=== PATIENT | male | born 1995 | race Caucasian/White ===

== ENCOUNTER 2018-07-12 21:45 | Emergency (ER) | payer MEDICAID ==
[~2018-07-12] VITALS: Ht 182.9 cm; Wt 81.6 kg
[2018-07-12 21:45] VITALS: BP_SYST 141
[~2018-07-12 21:45] MED LIST: ALBU17AE26 IH; CONCERTA; GUAN3TAB
--- NOTE | 2018-07-12 21:45 | NUR ---
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 Initial SPO2 93% RA. SPO2 increases to 97% on O2 at 2 LPM/NC. Pt report given to KIMBERLY Conteh.
--- NOTE | 2018-07-12 21:50 | NUR ---
Patient to ER via triage for evaluation of asthma exacerbation, cough and stuffed nose. Patient reports no relief from albuterol inhaler, or nebulizer. Patient is awake, alert and oriented in no acute distress, vital signs stable, respirations even and unlabored, skin warm and dry to touch. Patient placed on oxygen at 2 lpm via NC. Awaiting evaluation by ER MD, will continue to observe and assess.
--- NOTE | 2018-07-12 22:30 | NUR ---
Pt placed to ER bed 03, to conveyor monitor, O2 at 2LMP, SPO2 97%. NAD.
--- NOTE | 2018-07-12 22:50 | NUR ---
ER at bedside examining patient.
[2018-07-12] MEDS ORDERED: PREDNISONE 20 MG TABLET PO ONE (23:00)
[2018-07-12] MEDS ORDERED: IPRATROPIUM BROM 0.5 MG/2.5 ML VIAL.NEB (ATROVENT) IH ONE (23:00)
[2018-07-12] MEDS ORDERED: LevALBUTEROL HCL 1.25 MG/0.5 ML *CONC.* VIAL.NEB (XOPENEX CONC.) INH ONE ×2 (23:00→23:45)
--- NOTE | 2018-07-12 23:30 | NUR ---
RT at bedside for breathing treatment.
--- NOTE | 2018-07-13 00:30 | NUR ---
Patient resting quietly in no acute distress, vital signs stable, respirations even and unlabored, skin warm and dry to touch. No adverse reaction noted to medication.
[2018-07-13 01:00] VITALS: BP_SYST 107
--- NOTE | 2018-07-13 01:00 | NUR ---
Patient given written and verbal discharge instructions and verbalizes understanding. ER MD discussed with patient the results and treatment provided. Patient in stable condition. ID arm band removed. Rx of Prednisone given. Patient educated on pain management and to follow up with PMD. Pain Scale 0. Opportunity for questions provided and answered. Medication side effect fact sheet provided. Patient left ER in no acute distress, able to ambulate without difficulty with slow, steady gait with friend at his side. No adverse reaction noted to medication.
== END 2018-07-13 01:00 | disposition home or self-care (01) ==
LOC: SED 21:45
DX: J45.901 Unspecified asthma with (acute) exacerbation (principal); J06.9 Acute upper respiratory infection, unspecified; F90.9 Attention-deficit hyperactivity disorder, unspecified type; Z87.891 Personal history of nicotine dependence; Z79.899 Other long term (current) drug therapy; Z71.6 Tobacco abuse counseling
CPT/HCPCS: 71045; 94640; 99284; J7512; J7612 ×2

== ENCOUNTER 2018-08-08 15:13 | Emergency (ER) | payer MEDICAID ==
[~2018-08-08] VITALS: Ht 182.9 cm; Wt 79.4 kg
[2018-08-08 15:29] VITALS: BP_SYST 162
--- NOTE | 2018-08-08 15:34 | NUR ---
patient placed in hallway bed, endorsed care to lacy garvey.
--- NOTE | 2018-08-08 15:35 | NUR ---
Patient to ER via triage for suture removal, patient had sutures placed on 08/01/18. No bleeding, no redness or swelling, no s/s infection noted. Patient is awake, alert and oriented in no acute distress, vital signs stable, respirations even and unlabored, skin warm and dry to touch. Awaiting evaluation by ER MD/CDL DRIVER, will continue to observe and assess.
--- NOTE | 2018-08-08 15:38 | NUR ---
Meli Cruz [employer] CLERK at bedside to evaluate patient.
[2018-08-08 16:00] VITALS: BP_SYST 140
--- NOTE | 2018-08-08 16:00 | NUR ---
Patient given written and verbal discharge instructions and verbalizes understanding. ER MD discussed with patient the results and treatment provided. Patient in stable condition. ID arm band removed. No RX given. Patient educated on pain management and to follow up with PMD. Pain Scale 0. Opportunity for questions provided and answered. Medication side effect fact sheet provided. Patient left ER in no acute distress, able to ambulate without difficulty with slow, steady gait. No active bleeding from suture removal site.
== END 2018-08-08 16:00 | disposition home or self-care (01) ==
LOC: SED 15:13
DX: S61.412D Laceration without foreign body of left hand, subsequent encounter (principal); R03.0 Elevated blood-pressure reading, without diagnosis of hypertension; J45.909 Unspecified asthma, uncomplicated; F90.9 Attention-deficit hyperactivity disorder, unspecified type; X99.1XXD Assault by knife, subsequent encounter
CPT/HCPCS: 99281

== ENCOUNTER 2019-10-11 16:22 | Emergency (ER) | payer MEDICAID ==
[~2019-10-11] VITALS: Ht 182.9 cm; Wt 81.6 kg
[2019-10-11] MEDS ORDERED: IPRATROPIUM/ALBUTEROL SULFATE 3 ML AMPUL.NEB (DUONEB) INH ONE (16:30)
[2019-10-11] MEDS ORDERED: methylPREDNISolone SOD SUCC/PF 62.5 MG/ML VIAL IM ONE (16:30)
[2019-10-11 16:33] VITALS: BP_SYST 151
[2019-10-11 17:54] VITALS: BP_SYST 113
== END 2019-10-11 17:54 | disposition home or self-care (01) ==
LOC: SED 16:22
DX: J45.901 Unspecified asthma with (acute) exacerbation (principal); F90.9 Attention-deficit hyperactivity disorder, unspecified type; F17.200 Nicotine dependence, unspecified, uncomplicated; F12.90 Cannabis use, unspecified, uncomplicated; Z71.6 Tobacco abuse counseling
CPT/HCPCS: 94640; 96372; 99283; J2930; J7620

== ENCOUNTER 2023-07-20 11:57 | Emergency (ER) | payer MEDICAID ==
[~2023-07-20] VITALS: Ht 182.9 cm; Wt 91.2 kg
[2023-07-20 11:57] VITALS: BP_SYST 139; PULSE 86; RESP 17; TEMP 97.2; O2SAT 98
[~2023-07-20 11:57] MED LIST changes: -CONCERTA; -GUAN3TAB
[2023-07-20 12:43] LABS: BASOPHILS # (AUTO) 0.1 K/uL (0.0-0.2); BASOPHILS % (AUTO) 1.2 % (0.0-2.0); EOSINOPHILS # (AUTO) 0.5 K/uL (0.0-0.4); EOSINOPHILS % (AUTO) 6.3 % (0.0-4.0); HEMATOCRIT 46.2 % (36-54); HEMOGLOBIN 15.5 g/dL (14.0-18.0); LYMPHOCYTES # (AUTO) 2.2 K/uL (1.0-5.5); LYMPHOCYTES % (AUTO) 28.9 % (20.5-51.5); MEAN CORPUSCULAR HEMOGLOBIN 31 pg (27-31); MEAN CORPUSCULAR HGB CONC 34 % (32-36); MEAN CORPUSCULAR VOLUME 93 fL (79.0-98.0); MONOCYTES # (AUTO) 0.5 K/uL (0.0-1.0); MONOCYTES % (AUTO) 6.7 % (1.7-9.3); NEUTROPHILS # (AUTO) 4.4 K/uL (1.8-7.7); NEUTROPHILS % (AUTO) 56.9 % (40.0-70.0); PLATELET COUNT (AUTO) 188 K/uL (130-430); RED BLOOD CELL COUNT(AUTO) 4.96 MIL/uL (4.2-6.2); RED CELL DISTRIBUTION WIDTH 13.5 % (9.0-15.0); WHITE BLOOD COUNT (AUTO) 7.7 K/uL (4.8-10.8)
[2023-07-20 12:46] LABS: ALANINE AMINOTRANSFERASE 31 U/L (12-78); ALBUMIN 4.2 g/dL (3.4-4.8); ANION GAP 4 (5-15); ASPARTATE AMINOTRANSFERASE 17 U/L (10-37); CALCIUM 8.7 mg/dL (8.4-11.0); CARBON DIOXIDE 30 mmol/L (23-29); CHLORIDE 101 mmol/L (98-107); CREATININE 1.07 mg/dL (0.55-1.30); GFR AFRICAN AMERICAN 107 mL/min (>90); GLUCOSE 97 mg/dL (74-106); SODIUM SERUM 135 mmol/L (136-145); TOTAL BILIRUBIN 0.5 mg/dL (0.0-1.0); TOTAL PROTEIN, SERUM 7.7 g/dL (6.4-8.3); UREA NITROGEN, BLOOD 14 mg/dL (8-21)
[2023-07-20 12:47] LABS: GFR NON AFRICAN-AMERICAN 88 mL/min (>90)
[2023-07-20] MEDS ORDERED: PRED20TA PO (13:24)
[2023-07-20 13:40] VITALS: BP_SYST 139; PULSE 92; RESP 20; TEMP 97.9; O2SAT 94
== END 2023-07-20 13:39 | disposition home or self-care (01) ==
LOC: SED 11:57
DX: J98.01 Acute bronchospasm (principal); J45.909 Unspecified asthma, uncomplicated
CPT/HCPCS: 36415; 71045; 80053; 84484; 85025; 93005; 99285